=== PATIENT | male | born 1950 | race Two or more races ===

== ENCOUNTER 2018-01-13 11:53 | Emergency (ER) | payer OTHER ==
[2018-01-13 12:05] VITALS: BP 143/61; PULSE 62; TEMP 98.6; BMI 31.4
--- NOTE | 2018-01-13 12:44 | PDOC ---
History of Present Illness - General Chief Complaint: Pain Stated Complaint: FOREIGN BODY Time Seen by Provider: 01/13/18 12:14 History Source: Patient Exam Limitations: No Limitations - History of Present Illness Initial Comments: 01/13/18 12:39 HISTORY OF PRESENT ILLNESS: This 67-year-old male with past medical history of hypertension, NIDDM, hyperlipidemia presents emergency department for evaluation of retained foreign body in his left hand. Patient states he was using a wooden mop when he felt a pinch in the palmar surface of his left hand. Patient noted he was tender around the area where he felt a pinch. Patient was sent by sheet metal supervisor for evaluation. No recent travel or sick contacts. PAST MEDICAL HISTORY: NIDDM, HTN, HLD SURGICAL HISTORY: Denies ALLERGIES: No known drug allergies REVIEW OF SYSTEMS General/Constitutional: Denies fever or chills. Denies weakness, weight change. HEENT: Denies change in vision. Denies ear pain or discharge. Denies sore throat. Cardiovascular: Denies chest pain or shortness of breath. Respiratory: Denies cough, wheezing, or hemoptysis. Gastrointestinal: Denies nausea, vomiting, diarrhea or constipation. Denies rectal bleeding. Genitourinary: Denies dysuria, frequency, or change in urination. Musculoskeletal: Denies joint or muscle swelling or pain. Denies neck or back pain. Skin and breasts: Retained foreign body in left palm. Neurologic: Denies headache, vertigo, loss of consciousness, or loss of sensation. Psychiatric: Denies depression or anxiety. Endocrine: Denies increased thirst. Denies abnormal weight change. Hematologic/Lymphatic: Denies anemia, easy bleeding, or history of blood clots. Allergic/Immunologic: Denies hives or skin allergy. Denies latex allergy. PHYSICAL EXAM General Appearance: Well-appearing, appropriately dressed. No apparent distress , no intoxication. Respiratory/Chest: Lungs CTAB. No shortness of breath, chest tenderness, respiratory distress, accessory muscle use. No crackles, rales, rhonchi, stridor , wheezing, dullness Cardiovascular: RRR. S1, S2. No JVD, murmur, bradycardia, tachycardia. Integumentary: Foreign body present in the palmar surface of the left hand. No erythema or induration present. Past History - Past Medical History Allergies/Adverse Reactions: Allergies Allergy/AdvReac Type Severity Reaction Status Date / Time No Known Allergies Allergy Verified 06/04/17 07:36 Home Medications: Ambulatory Orders Ibuprofen [Motrin -] 600 mg PO TID PRN #20 tablet 09/28/14 Metaxalone [Skelaxin] 800 mg PO HS PRN #5 tablet 09/28/14 Polyethylene Glycol 3350 [Miralax (For Daily Use) -] 17 gm PO ONCE #1 bottle COPD: No Diabetes: Yes HTN: Yes Hypercholesterolemia: Yes - Surgical History Appendectomy: Yes - Suicide/Smoking/Psychosocial Hx Smoking Status: No Smoking History: Never smoked Have you smoked in the past 12 months: No Number of Cigarettes Smoked Daily: 0 Hx Alcohol Use: No Drug/Substance Use Hx: No Substance Use Type: None *Physical Exam - Vital Signs Last Vital Signs Temp Pulse Resp BP Pulse Ox 98.6 F 62 16 143/61 98 01/13/18 12:02 01/13/18 12:02 01/13/18 12:02 01/13/18 12:02 01/13/18 12:02 Moderate Sedation - Procedure Monitoring Vital Signs: Procedure Monitoring Vital Signs Temperature 98.6 F 01/13/18 12:02 Pulse Rate 62 01/13/18 12:02 Respiratory Rate 16 01/13/18 12:02 Blood Pressure 143/61 01/13/18 12:02 O2 Sat by Pulse Oximetry (%) 98 01/13/18 12:02 Medical Decision Making - Medical Decision Making 01/13/18 12:39 A/P: 67-year-old male with history of diabetes with foreign body present to the palmar surface of the left hand. No erythema or induration noted surrounding foreign body Foreign-body removed under direct visualization using forceps. Patient states relief after foreign body is been removed Discharge home *DC/Admit/Observation/Transfer Diagnosis at time of Disposition: Foreign body (FB) in soft tissue - Discharge Dispostion Disposition: HOME Condition at time of disposition: Stable Decision to Admit order: No - Referrals Referrals: Agustín Chua MD [Primary Care Provider] - - Patient Instructions Additional Instructions: Return to emergency department for any concerns. - Post Discharge Activity
== END 2018-01-13 13:00 | disposition home or self-care (01) ==
LOC: JERFT 11:53
PROC: 0JCK3ZZ Extirpation of Matter from Left Hand Subcutaneous Tissue and Fascia, Percutaneous Approach (ICD-10-PCS; principal; 2018-01-13)
DX: M79.5 Residual foreign body in soft tissue (principal); S60.552A Superficial foreign body of left hand, initial encounter; W45.8XXA Other foreign body or object entering through skin, initial encounter; Y93.H9 Activity, other involving exterior property and land maintenance, building and construction; Y92.238 Other place in hospital as the place of occurrence of the external cause; Y99.0 Civilian activity done for income or pay
CPT/HCPCS: 99281-25

== ENCOUNTER 2020-04-22 04:24 | Day surgery (SDC) | payer OTHER ==
[2020-04-19 16:28] VITALS: BMI 33.2
[2020-04-22] MEDS ORDERED: PROPOFOL 20 ML ONE (09:27)
[2020-04-22] MEDS ORDERED: ONDANSETRON 4 MG/2 ML VIAL IVPUSH PRN (09:30)
[2020-04-22] MEDS ORDERED: oxyCODONE HCL 5 MG TABLET PO PRN (09:30)
[2020-04-22] MEDS ORDERED: KETOROLAC TROMETHAMINE 30 MG/1 ML VIAL ONE (09:55)
[2020-04-22 11:53] VITALS: BP 152/68; PULSE 55; TEMP 98.1
== END 2020-04-22 11:35 | disposition home or self-care (01) ==
LOC: JASU-SURG 04:24 → EDSTATUS 10:35 → JASU-SURG 11:35
PROVIDERS: ATTEND Urology
PROC: 0TF3XZZ Fragmentation in Right Kidney Pelvis, External Approach (ICD-10-PCS; principal; 2020-04-22 09:00)
DX: N20.0 Calculus of kidney (principal); E11.9 Type 2 diabetes mellitus without complications; I10 Essential (primary) hypertension
CPT/HCPCS: 82962